=== PATIENT | female | born 1995 | race Caucasian/White ===

== ENCOUNTER → 2018-11-29 | Outpatient (CLI) | payer BC ==
[~2018-11-29] MED LIST: IOHEXOL 240 MG/ML 50ML VIAL. ONE; IOHEXOL 300 MG/ML 75 ML VIAL. IV ONE
--- NOTE | 2018-11-30 08:38 | RAD ---
EXAM: CT Abdomen and Pelvis with IV contrast CLINICAL HISTORY: Periumbilical abdominal pain. COMPARISON: none TECHNIQUE: Helical CT of the abdomen and pelvis was performed following the administration of intravenous contrast. Axial, coronal and sagittal reformatted images were generated. PQRS compliance statement - One or more of the following individualized dose reduction techniques were utilized for this study: 1. Automated exposure control 2. Adjustment of the mA and/or kV according to patient size 3. Use of iterative reconstruction technique FINDINGS: Lower chest: Lung bases are clear Abdomen and Pelvis: No focal liver lesion. Gallbladder is normal. No biliary ductal dilatation. Spleen is unremarkable. Adrenal glands are normal. Pancreas is unremarkable. Symmetric nephrograms. No focal renal lesion. No hydronephrosis. No hydroureter. Moderate to large volume colonic stool content is seen. Appendix is normal. No abdominal or pelvic lymphadenopathy although prominent mesenteric lymph nodes are seen. Bladder is unremarkable. Tampon is seen within the vagina. Uterus and adnexa are grossly unremarkable. Tiny fat-containing periumbilical hernia. Bones: Osseous structures are unremarkable. IMPRESSION: 1. Moderate to large volume colonic stool content is seen. 2. No evidence for bowel obstruction. 3. Tiny fat-containing periumbilical hernia without associated inflammatory change. Electronically signed by: Denver Morales MD (11/30/2018 8:35 AM) [id number]
== END | disposition home or self-care (01) ==
LOC: CT 15:23
PROVIDERS: ATTEND Internal Medicine Gastroenterology
DX: R10.33 Periumbilical pain (principal); K56.41 Fecal impaction; J44.9 Chronic obstructive pulmonary disease, unspecified; Z88.0 Allergy status to penicillin; Z88.2 Allergy status to sulfonamides
CPT/HCPCS: 74177; Q9967